=== PATIENT | male | born 1980 | race Hispanic/Latino ===

== ENCOUNTER 2022-06-26 07:34 | Emergency (ER) | payer SELFPAY ==
[2022-06-26 07:39] VITALS: BP 153/94; PULSE 72; RESP 14; TEMP 37.2; O2SAT 99; BMI 34.9
--- NOTE | 2022-06-26 09:10 | ED_ITS ---
HPI - Wound/Laceration General Chief Complaint: Wound/Laceration Stated Complaint: cut finger Time Seen by Provider: 06/26/22 08:27 Source: patient Mode of arrival: Ambulatory History of Present Illness HPI narrative: Patient here for injury/laceration to the left index finger. Patient is right- handed. Patient drove himself here. 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 He accidentally cut his left index finger with a rotating aluminum pipe. Bleeding controlled at time of arrival with home self dressing. Dressing was removed. No numbness or tingling to the finger. Related Data Previous Rx's Medication Instructions Recorded cephalexin 500 mg capsule 500 mg PO QID #20 caps 06/26/22 Allergies Allergy/AdvReac Type Severity Reaction Status Date / Time No Known Drug Allergies Allergy Verified 06/26/22 07:43 Review of Systems Review of Systems Narrative: GENERAL: negative chills, fatigue, malaise, fever, sweats. HEENT: negative sinus pain, ear pain, sore throat MUSCULOSKELETAL: negative muscle or bony pain SKIN: negative rash, skin lesions, positive skin injury NEUROLOGIC: negative weakness, numbness ROS Unobtainable: All systems reviewed & are unremarkable except as noted in HPI and below Patient History Social History Smoking Status: Unknown if ever smoked Smoking Status: Unknown if ever smoked alcohol intake frequency: holidays/special occasions only Substance Use Type: does not use Exam Narrative Exam Narrative: GENERAL: in no distress, not toxic not dyspneic HEAD: Normocephalic. EYES: Pupils equal round EXTREMITIES: No gross deformities. Examination left hand. There is a 2 cm transverse laceration at the mid palmar surface of the index finger at the proximal phalanx. Bleeding is controlled. No tendon or bone injury seen. Patient does have full flexion extension at the MCP PIP and PIP joints. Light touch intact to finger tip. Brisk cap refill. No foreign body seen. NEURO: AOx4. SKIN: Warm and dry PSYCH: Not anxious, is cooperative Initial Vital Signs Initial Vital Signs: Vital Signs Temperature 98.9 F 06/26/22 07:39 Pulse Rate 72 06/26/22 07:39 Respiratory Rate 14 06/26/22 07:39 Blood Pressure 153/94 H 06/26/22 07:39 Pulse Oximetry 99 06/26/22 07:39 Oxygen Delivery Method 06/26/22 07:39 Procedures Laceration Repair Laceration 1: Time of procedure: 09:12 Site: other (Finger/left index) Side (If applicable): left Size (cm): 2 Description: linear Depth: simple, single layer Local Anesthetic: lidocaine 2% Amount of anesthesia used (mL): 4 Pre-repair: wound explored, irrigated extensively, deep structures intact (Possible tendon injury) and cleansed with chlorhexadine Skin layer closed with: nylon Skin layer suture size: 4-0 Number of sutures: 9 Technique: simple, interrupted Course Orders Ordered: Discontinued Medications Bacitracin (Bacitracin Oint 0.9 Gm Pckt) 1 applic TOP NOW ONE Stop: 06/26/22 09:10 Last Admin: 06/26/22 09:23 Dose: 1 applic Documented By: ALTON Cephalexin HCl (Cephalexin 250 Mg Capsule) 500 mg PO NOW ONE Stop: 06/26/22 09:07 Last Admin: 06/26/22 09:22 Dose: 500 mg Documented By: ALTON Diphtheria/Tetanus/Acell Pertussis (Tet,Diph,Pertuss(Acell),Vac/Pf 0.5 Ml Syringe) 0.5 ml IM .ONCE ONE Stop: 06/26/22 09:10 Last Admin: 06/26/22 09:22 Dose: 0.5 ml Documented By: ALTON Vital Signs Vital signs: Vital Signs - 8 hr 06/26/22 07:39 06/26/22 09:36 Temperature 98.9 F Pulse Rate 72 77 Respiratory Rate 14 18 Blood Pressure 153/94 H Pulse Oximetry 99 98 Oxygen Delivery Method Room Air Room Air MDM - Wound/Laceration MDM Narrative Medical decision making narrative: Patient here for injury/laceration to the left index finger. Patient is right- handed. Patient drove himself here. 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 He accidentally cut his left index finger with a rotating aluminum pipe. Bleeding controlled at time of arrival with home self dressing. Dressing was removed. No numbness or tingling to the finger After examined history. No imaging blood work indicated this time. Base is visualized. Low suspicion at this time for fracture. MDM CC: Finger laceration Complicating co-morbidities: None Data collected from: Patient Medical records reviewed: No previous visits for laceration Differential considered: Includes but not limited to finger laceration tendon injury ligamentous injury fracture Exam documented above, pertinent findings include: 2 cm laceration on the finger Consultations: 12:[address] Zhang with orthopedics/hand surgery did finally call back. Agrees with treatment plan he will see patient in the clinic for re-evaluation. Treatments: Wound suturing/tetanus shot/Keflex Re-evaluations: Bleeding controlled at time of discharge. Hemostasis obtained. Dressing applied. Bulky dressing. Instructed patient to use bulky dressing and not to been finger fully to prevent ripping of the stitches Discussion: Appropriate for discharge home. Differential diagnosis does include but not limited a possible tendon injury but does have good range of motion at this time. Joints were isolated for range of motion after anesthesia locally applied. Return precautions reviewed patient. Reviewed with orthopedics for follow-up. Keflex started in the department. 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 No L and I form needed. Diagnosis: Finger laceration Discharge Plan Departure Patient Disposition: Home Clinical Impression: Laceration Instructions: DI for Laceration Repair Activity Restrictions/Additional Instructions: Call provided orthopedic office today for office appointment for re-evaluation your finger. Nine stitches need to be removed in 12-14 days. Change your dressing twice a day with warm soap and water and apply a thin layer of topical antibiotic. Be sure to complete the prescription pills. Return if worse if any questions or concerns or if any fever or redness or pain from your finger or any discharge from your finger. Prescriptions: New cephalexin 500 mg capsule 500 mg PO QID Qty: 20 0RF Referrals: Miscellaneous,MD Ulysses [Primary Care Provider] - Alexander Zhang MD [Physician] - Stand Alone Forms: Patient Portal/API
[2022-06-26] MEDS: cephALEXin 250 MG CAPSULE 500 MG PO (09:22)
[2022-06-26] MEDS: TET,DIPH,PERTUSS(ACELL),VAC/PF 0.5 ML SYRINGE IM (09:22)
[2022-06-26] MEDS: BACITRACIN OINT 0.9 GM PCKT 1 APPLIC TOP (09:23)
[2022-06-26 09:36] VITALS: PULSE 77; RESP 18; O2SAT 98
== END 2022-06-26 09:37 | disposition home or self-care (01) ==
PROVIDERS: Emergency Provider Emergency Medicine
DX: S61.211A Laceration without foreign body of left index finger without damage to nail, initial encounter (principal); W45.8XXA Other foreign body or object entering through skin, initial encounter; Z23 Encounter for immunization
CPT/HCPCS: 12001; 90471; 99283; 90715

== ENCOUNTER 2022-07-08 08:14 | Emergency (ER) | payer SELFPAY ==
[2022-07-08 08:20] VITALS: BP 151/105; PULSE 60; RESP 18; TEMP 36.8; O2SAT 99; BMI 34.7
--- NOTE | 2022-07-08 08:41 | ED.RECABL ---
HPI - Recheck/Abnormal Lab/Rx General Chief Complaint: Recheck/Abnormal Lab/Rx Stated Complaint: LT finger stitches removel Time Seen by Provider: 07/08/22 08:35 Source: patient Mode of arrival: Ambulatory Limitations: no limitations History of Present Illness HPI narrative: Patient is a 42-year-old male who was seen here in the emergency department on June 26 after sustaining a cut to his left index finger. He is here today to have the stitches removed. He states that everything has been going well. No new complaints. Related Data Previous Rx's Medication Instructions Recorded cephalexin 500 mg capsule 500 mg PO QID #20 caps 06/26/22 Allergies Allergy/AdvReac Type Severity Reaction Status Date / Time No Known Drug Allergies Allergy Verified 07/08/22 08:19 Review of Systems Musculoskeletal Musculoskeletal: Reports system reviewed and no additional complaints, except as documented Integumentary/Breasts Skin/Breast: Reports system reviewed and no additional complaints, except as documented Hematologic/Lymphatic On Anticoagulants: No Patient History Social History Smoking Status: Unknown if ever smoked Smoking Status: Unknown if ever smoked alcohol intake frequency: holidays/special occasions only Substance Use Type: does not use Exam Initial Vital Signs Initial Vital Signs: Vital Signs Temperature 98.2 F 07/08/22 08:20 Pulse Rate 60 07/08/22 08:20 Respiratory Rate 18 07/08/22 08:20 Blood Pressure 151/105 H 07/08/22 08:20 Pulse Oximetry 99 07/08/22 08:20 Oxygen Delivery Method 07/08/22 08:20 Skin Other: There is a will heal incision on the volar aspect of his left index finger with multiple stitches in place. There appears to be no signs of dehiscence. No signs of infection. Neuro Sensory Exam: no sensory deficits noted Extrem Other: Left index finger appears well there are stitches in place Course Vital Signs Vital signs: Vital Signs - 8 hr 07/08/22 08:20 Temperature 98.2 F Pulse Rate 60 Respiratory Rate 18 Blood Pressure 151/105 H Pulse Oximetry 99 Oxygen Delivery Method Room Air MDM - Recheck/Abnormal Lab/Rx MDM Narrative Medical decision making narrative: The wound appears well without signs of infection or dehiscence. Stitches were removed today by nursing staff and Steri-Strips were placed over the area. Will discharge patient home with return precautions Discharge Plan Departure Patient Disposition: Home Clinical Impression: Laceration, Encounter for wound re-check Activity Restrictions/Additional Instructions: You can wash your hands like normal. Leave the Steri-Strips in place until they come off which should be the next couple days. Return to the emergency department for new symptoms. Prescriptions: No Action cephalexin 500 mg capsule 500 mg PO QID Qty: 20 0RF Referrals: Miscellaneous,Doctor, MD [Primary Care Provider] - Stand Alone Forms: Patient Portal/API
== END 2022-07-08 08:56 | disposition home or self-care (01) ==
PROVIDERS: Emergency Provider Emergency Medicine
DX: Z48.1 Encounter for planned postprocedural wound closure (principal)
CPT/HCPCS: 99281